=== PATIENT | female | born 1950 ===

== ENCOUNTER 2018-07-21 13:10 | Outpatient (REF) | payer MEDICARE, OTHER, SELFPAY ==
[2018-07-21 19:33] LABS: Anion Gap 10.1 mmol/L (3-11); BUN 15 mg/dL (7-18); CO2 26.9 mmol/L (21.0-32.0); CREATININE 0.74 mg/dL (0.55-1.02); Calcium 9.5 mg/dL (8.5-10.1); Chloride 103 mmol/L (98-107); Glucose 121 mg/dL (70-100); Potassium 4.2 mmol/L (3.5-5.1); Sodium 140 mmol/L (136-145); TSH 3.39 uIU/mL (0.358-3.74)
== END 2018-07-21 13:30 ==
LOC: NCHCN 13:10
PROVIDERS: PCP Physician Assistant Medical; Visit Provider Physician Assistant Medical
DX: E10.9 Type 1 diabetes mellitus without complications (principal)
CPT/HCPCS: 80048; 84443

== ENCOUNTER 2019-04-28 13:21 | Outpatient (REF) | payer MEDICARE, OTHER, SELFPAY ==
[2019-04-28 19:57] LABS: ALT 22 U/L (14-59); AST 14 U/L (15-37); Albumin 3.6 g/dL (3.4-5.0); Alkaline Phosphatase 61 U/L (46-116); Bilirubin, Direct 0.15 mg/dL (0.00-0.20); Bilirubin, Total 0.5 mg/dL (0.2-1.0); Total Protein 6.4 g/dL (6.4-8.2)
[2019-04-28 20:08] LABS: Calculated LDL 91 mg/dL (<100); Cholesterol 208 mg/dL (<200); HDL Cholesterol 106 mg/dL (40-60); Triglyceride 59 mg/dL (<150)
[2019-04-30 11:44] LABS: Hepatitis C Ab w Rflx HCV PCR Negative (Negative)
[2019-04-30 11:56] LABS: HIV-1/2 Ag & Ab Screen Negative (Negative)
== END 2019-04-28 13:41 ==
LOC: NCHCN 13:21
PROVIDERS: PCP Physician Assistant Medical; Visit Provider Nurse Practitioner Family
DX: Z11.4 Encounter for screening for human immunodeficiency virus [HIV] (principal); Z11.59 Encounter for screening for other viral diseases; Z13.6 Encounter for screening for cardiovascular disorders
CPT/HCPCS: 80061; 80076; 86803; 87389